=== PATIENT | male | born 1975 | race Caucasian/White ===

== ENCOUNTER 2022-08-07 20:00 | Emergency (ER) | payer OTHER, SELFPAY ==
--- NOTE | ~2022-08-07 | XR_ITS ---
EXAMINATION: XR chest 2V DATE: 08/07/2022 20:35 INDICATION: Chest pain. TECHNIQUE: Frontal and lateral views of the chest were obtained. COMPARISON: None. FINDINGS: There is no pneumonia, pleural effusion, or pneumothorax. The heart size is normal. IMPRESSION: 1. No acute cardiopulmonary disease. Reviewed, dictated and finalized at location E.
--- NOTE | 2022-08-07 20:02 | ECG_ITS ---
Measurements Intervals [place] Rate: 101 P: 61 [place]: 171 QRS: 21 QRSD: 108 T: 46 QT: 346 QTc: 450 Interpretive Statements SINUS TACHYCARDIA BASELINE ARTIFACT- I, II, III, AVR, AVL, AVF, V1 BORDERLINE ECG NO PREVIOUS ECG AVAILABLE FOR COMPARISON Electronically Signed On 08-07-2022 20:20:08 CDT by Daryl Stewart D.O.
[2022-08-07] MEDS: ASPIRIN 81 MG CHEWABLE TABLET 324 MG PO (20:05)
[2022-08-07 20:07] VITALS: BP 184/96; PULSE 102; RESP 22; TEMP 37.1; O2SAT 99
[2022-08-07 20:13] LABS: Basophils Absolute Auto 0.1 K/mm3 (0.0-0.1); Basophils Percent Auto 0.8 % (0.2-1.2); Eosinophils Absolute Auto 0.3 K/mm3 (0-0.3); Eosinophils Percent Auto 2.1 % (0-4.4); Hematocrit 41.4 % (42.0-52.0); Hemoglobin 14.7 g/dL (14.0-18.0); Immature Granulocyte Absolute 0.06 K/mm3 (0.00-0.031); Immature Granulocyte Percent A 0.4 % (0-0.5); Lymphocytes Absolute Auto 2.95 K/mm3 (0.9-3.2); Mean Corpuscular HGB Conc 35.5 g/dl (32-36); Mean Corpuscular Hemoglobin 35.3 pg (26-34); Mean Corpuscular Volume 99.5 fl (80-100); Mean Platelet Volume 8.8 fl (7.4-10.4); Monocytes Absolute Auto 1.9 K/mm3 (0.1-0.6); Monocytes Percent Auto 12.1 % (2.6-8.5); Neutrophils Absolute Auto 10.2 K/mm3 (1.3-6.7); Neutrophils Percent Auto 65.6 % (45.5-73.1); Platelet Count Result 292 k/mm3 (150-375); Red Blood Count 4.16 M/mm3 (4.6-6.20); Red Cell Distribution Width 12.8 % (11.5-14.5); White Blood Count 15.5 K/mm3 (4.5-10.0)
[2022-08-07 20:23] LABS: Alanine Aminotransferase 80 U/L (6-50); Albumin Level 5.2 g/dL (3.5-5.1); Alkaline Phosphatase 244 U/L (38-126); Anion Gap 18 mmol/L (8-16); Aspartate Amino Transferase 153 U/L (17-59); Bilirubin,Total 1.2 mg/dL (0.2-1.3); Blood Urea Nitrogen 7 mg/dL (9-20); Calcium 9.1 mg/dL (8.4-10.2); Carbon Dioxide 19 mmol/L (22-30); Chloride 90 mmol/L (98-107); Estimated CRCL calculation 199 ml/min; Estimated Glomerular Filt Rate > 60; Glucose 136 mg/dL (65-110); Lipase 120 U/L (23-300); Potassium 3.6 mmol/L (3.4-5.0); Sodium 127 mmol/L (137-145)
[2022-08-07 20:25] LABS: INR 1.2
[2022-08-07 20:26] LABS: Partial Thromboplastin Time 43.4 SECONDS (22.3-36.8)
[2022-08-07 20:34] LABS: Troponin I < 0.012 ng/mL (0.000-0.034)
[2022-08-07] MEDS: LORazepam INJ (*CRX) 2 MG/ML VIAL 1 MG IV PUSH (21:10)
[2022-08-07 21:11] VITALS: BP 175/91; PULSE 102; RESP 20; O2SAT 95
[2022-08-07 21:31] VITALS: BP 164/93; PULSE 92; RESP 20; O2SAT 96
[2022-08-07 21:37] LABS: D Dimer 0.34 ug/mL (<0.48)
[2022-08-07] MEDS: SODIUM CHLORIDE 0.9% IV 3,000 ML 999 ML IV CONT (21:40)
[2022-08-07 21:42] LABS: NT Pro B Type Natriuretic Pept 27 pg/mL (19.9-100)
[2022-08-07 22:01] VITALS: BP 161/84; PULSE 88; RESP 20; O2SAT 97
--- NOTE | 2022-08-07 22:10 | ED.GENADULT ---
HPI - General Adult General Chief complaint: Chest Pain Stated complaint: chest pain Time Seen by Provider: 08/07/22 21:01 History of Present Illness HPI narrative: This is a 46-year-old male with history of alcohol use disorder anxiety presenting ED with chest pain. Patient said that starting at 7:00 p.m. while he was watching TV started have a tightness over the left side of his chest. It is nonradiating, 10 out 10 intensity and is getting worse. Is associated with feelings of impending doom. He also had nausea, diaphoresis and feels this is associated with exertion. No vomiting fever chills or cough. Patient's last drink was earlier today and he had a six-pack of beer per Related Data Allergies Allergy/AdvReac Type Severity Reaction Status Date / Time lisinopril Allergy Unknown Hives Verified 04/16/22 16:01 Penicillins Allergy Unknown Pt does Verified 04/16/22 16:01 not remember reaction PMFSH Past Medical History Medical History Body mass index [BMI] 36.0-36.9, adult (09/13/17) Cellulitis of right lower extremity Encounter for immunization (12/08/18) Tachycardia Family History Family History Other Hypertension Social History Social History (Updated 04/16/22 @ 16:03 by Mallory Magallanes [facility]) Smoking status: Former smoker Smoking end date: 03/29/13 Lack of Transportation: No Lack of Food: Never True Current Housing: I Have Housing Concerned About Future Housing: No Difficulty Paying Gas/Electric Bills: No Difficulty Paying for Meds: No Currently Unemployed: No Education: Trade/Vocational Certificate Difficulty w/ Childcare or Family Care: No Exam Narrative: APPEARANCE: patient appears anxious Head: atraumatic. EYES: EOMI, NOSE: Atraumatic NECK: Trachea midline RESPIRATORY: No increased rate of breathing clear to auscultation CARDIOVASCULAR: RRR, no peripheral edema ABDOMINAL: Non-distended, obese nontender no guarding rebound MUSCULOSKELETAl: No obvious deformities NEURO: Alert. Moving 4/4 extremities SKIN:: Warm, dry. Normal color PSYCHIATRIC: anxious Course Vital Signs Vital signs: Vital Signs Temperature 98.7 F 08/07/22 20:07 Pulse Rate 102 H 08/07/22 20:07 Respiratory Rate 22 H 08/07/22 20:07 Blood Pressure 184/96 H 08/07/22 20:07 Pulse Oximetry 99 08/07/22 20:07 Oxygen Delivery Room Air 08/07/22 20:07 Temperature 98.7 F 08/07/22 20:07 Pulse Rate 91 08/07/22 23:55 Respiratory Rate 18 08/07/22 23:55 Blood Pressure 161/84 H 08/07/22 22:01 Pulse Oximetry 97 08/07/22 23:55 Oxygen Delivery Room Air 08/07/22 20:07 Medical Decision Making MDM Narrative Medical decision making narrative: -Presentation: 46-year-old male presenting with chest pain. 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 Metabolic panel was significant for hyponatremia and hypochloremia with a metabolic anion gap acidosis. This is likely due to dehydration. patient will be given 3 L of fluid. patient also has elevations in his liver enzymes and alcohol use pattern. Troponins were negative x2. BNP was 27. D-dimer was 0.34. Independent EKG interpretation: Rhythm [sinus], Rate [101], Michie -[normal], NC -[normal], QRS [narrow], QTC [normal], T waves -[negative for concerning inversions], ST Segments - [Negative f
--- NOTE | 2022-08-07 23:15 | PC.NURSE ---
Assumed care of pt at this time
[2022-08-07 23:23] LABS: Troponin I < 0.012 ng/mL (0.000-0.034)
[2022-08-07 23:55] VITALS: PULSE 91; RESP 18; O2SAT 97
--- NOTE | 2022-08-08 00:02 | PC.NURSE ---
Pt denies any chest pain or SOB. Skin warm and dry. Lungs clear bilaterally.
[2022-08-08 00:44] VITALS: BP 164/87; PULSE 77; RESP 18; O2SAT 100
== END 2022-08-08 00:45 | disposition home or self-care (01) ==
PROVIDERS: Emergency Medicine; Emergency Provider Emergency Medicine; PCP Family Medicine
DX: R07.89 Other chest pain (principal); F41.9 Anxiety disorder, unspecified; E86.0 Dehydration; Z87.891 Personal history of nicotine dependence; R00.0 Tachycardia, unspecified
CPT/HCPCS: 36415; 71046; 80053; 83690; 83880; 84484; 85025; 85380; 85610; 85730; 93005; 96361; 96374; 99284; A9270; J2060; J7030

== ENCOUNTER 2022-09-07 20:58 | Observation (INO) | payer OTHER, SELFPAY ==
[2022-09-07] VITALS (7 sets, daily range): BP systolic 165–183; BP diastolic 75–88; PULSE 84–91; RESP 10–19; TEMP 36.3; O2SAT 96–99
--- NOTE | ~2022-09-07 | US_ITS ---
EXAMINATION: US abdomen limited DATE: 09/08/2022 07:59 INDICATION: Abdominal pain. TECHNIQUE: Multiple grayscale and Doppler ultrasound images of the abdomen were obtained. COMPARISON: CT abdomen and pelvis 09/07/2022 FINDINGS: The visualized portions of the head of the pancreas are normal. The liver demonstrates coar sened echotexture and surface nodularity, consistent with cirrhosis. The gallbladder is distended and contains sludge. Gallbladder wall thickening is noted. There is no sonographic Ahumada sign. The comm on duct is normal and measures 6 mm. IMPRESSION: 1. Cirrhosis of the liver. 2. Distended gallbladder with sludge and gallbladder wall thickening, but no sonographic Ahumada sign or visible gallstones. These findings are indeterminate for acute cholecystitis. Consider hepatobilia ry scintigraphy. Reviewed, dictated and finalized at location A. IMPRESSION: 1. Cirrhosis of the liver. 2. Distended gallbladder with sludge and gallbladder wall thickening, but no so nographic Ahumada sign or visible gallstones. These findings are indeterminate f or acute cholecystitis. Consider hepatobiliary scintigraphy.
--- NOTE | ~2022-09-07 | CT_ITS ---
EXAMINATION: CT abdomen pelvis w con DATE: 09/07/2022 22:12 INDICATION: abdominal pain, vomiting TECHNIQUE: Computed tomography (CT) of the abdomen and pelvis was performed with 100 mL Omnipaque-350 intravenous contrast. Automated exposure control and iterative reconstruction technique were employe d. The dose-length product was 1602.61 mGy-cm. COMPARISON: None. FINDINGS: Lower thorax: Unremarkable Liver: Hepatomegaly. Nodular appearing liver border. Biliary/Gallbladder: Gallbladder is distended to 5 cm, with wall hyperemia and mild surrounding infla mmatory change. No gallstones detected. No bile duct dilation. Pancreas: No mass or duct dilation. Spleen: Normal. Adrenals:No mass. Kidneys: Punctate left midpole calcification. No suspicious mass, obstructing stone, or hydronephrosi s. GI tract: No small or large bowel dilation. 13 x 20 mm fat density ovoid mass in the proximal sigmoid colon, likely lipoma. Normal appendix. Mesentery/Peritoneum: No ascites, mass, or free air. Retroperitoneum: No mass. Pelvis: Bladder wall thickening in the fully distended urinary bladder. No significant prostatomegaly . Prominent seminal vesicles. Soft Tissues: Uncomplicated fat-containing periumbilical and bilateral inguinal hernias. Bones: No acute osseous finding. IMPRESSION: 1. Hepatomegaly, with nodularity of the liver border as can be seen with cirrhosis. 2. Gallbladder hydrops with mild inflammatory change as can be seen with cholecystitis. 3. Urinary bladder wall thickening, may represent cystitis or outlet obstruction, correlate with urin alysis. 4. 20 mm fat density intraluminal mass in the proximal sigmoid colon, likely representing a lipoma an d requiring no additional workup, unless symptomatic, in which case consider GI referral for possible endoscopic excision. Reviewed, dictated and finalized at location K. IMPRESSION: 1. Hepatomegaly, with nodularity of the liver border as can be seen with cirrho sis. 2. Gallbladder hydrops with mild inflammatory change as can be seen with cholec ystitis. 3. Urinary bladder wall thickening, may represent cystitis or outlet obstructio n, correlate with urinalysis. 4. 20 mm fat density intraluminal mass in the proximal sigmoid colon, likely re presenting a lipoma and requiring no additional workup, unless symptomatic, in which case consider GI referral for possible endoscopic excision.
[2022-09-07 21:15] LABS: Basophils Absolute Auto 0.1 K/mm3 (0.0-0.1); Basophils Percent Auto 0.5 % (0.2-1.2); Eosinophils Percent Auto 0.2 % (0-4.4); Hematocrit 38.3 % (42.0-52.0); Hemoglobin 14.4 g/dL (14.0-18.0); Immature Granulocyte Absolute 0.08 K/mm3 (0.00-0.031); Immature Granulocyte Percent A 0.5 % (0-0.5); Lymphocytes Absolute Auto 0.95 K/mm3 (0.9-3.2); Lymphocytes Percent Auto 6.2 % (18.3-44.2); Mean Corpuscular HGB Conc 37.6 g/dl (32-36); Mean Corpuscular Hemoglobin 35.2 pg (26-34); Mean Corpuscular Volume 93.6 fl (80-100); Mean Platelet Volume 8.7 fl (7.4-10.4); Monocytes Absolute Auto 1.2 K/mm3 (0.1-0.6); Monocytes Percent Auto 7.8 % (2.6-8.5); Neutrophils Percent Auto 84.8 % (45.5-73.1); Platelet Count Result 277 k/mm3 (150-375); Red Blood Count 4.09 M/mm3 (4.6-6.20); Red Cell Distribution Width 11.8 % (11.5-14.5); White Blood Count 15.3 K/mm3 (4.5-10.0)
[2022-09-07 21:27] LABS: Alanine Aminotransferase 68 U/L (6-50); Albumin Level 5.3 g/dL (3.5-5.1); Alkaline Phosphatase 148 U/L (38-126); Anion Gap 18 mmol/L (8-16); Aspartate Amino Transferase 134 U/L (17-59); Bilirubin,Total 1.9 mg/dL (0.2-1.3); Blood Urea Nitrogen 11 mg/dL (9-20); Carbon Dioxide 24 mmol/L (22-30); Chloride 72 mmol/L (98-107); Estimated CRCL calculation 170 ml/min; Estimated Glomerular Filt Rate > 60; Glucose 165 mg/dL (65-110); Lipase 106 U/L (23-300); Potassium 3.9 mmol/L (3.4-5.0); Sodium 114 mmol/L (137-145)
--- NOTE | 2022-09-07 22:02 | PC.NURSE ---
Pt states he is unable to void at this time
[2022-09-07 22:10] LABS: Magnesium 1.1 mg/dL (1.6-2.3)
[2022-09-07 22:12] LABS: Ethanol < 10 mg/dL (<10); Lactic Acid Reflex 3.1 mmol/L (0.7-2.0)
[2022-09-07] MEDS: MAGNESIUM SULF 2 GM/WATER 50ML 2 GM/50 ML BAG IVPB (22:21)
[2022-09-07] MEDS: THIAMINE 500 MG/NS 100 ML 500 MG/100 ML BAG 200 MG IVPB (22:22)
[2022-09-07] MEDS: SODIUM CHLORIDE 0.9% IV 1,000 ML 999 ML IV CONT ×3 (22:25→23:03)
[2022-09-07] MEDS: ONDANSETRON INJ 4 MG/2 ML VIAL IV PUSH (22:25)
[2022-09-07 22:36] LABS: Beta-Hydroxybutyrate/Acetoacetate 0.58 mmol/L (0.02-0.27)
[2022-09-07 23:21] LABS: Appearance Urine Clear (Clear); Bacteria Urine None Seen /hpf; Bilirubin Urine Negative (Negative); Blood Urine Negative (Negative); Color Urine Yellow (Yellow); Glucose Urine UA 2+ mg/dL (Negative); Ketones Urine 1+ mg/dL (Negative); Leukocyte Esterase Ur Negative LEU/UL (Negative); Nitrate Urine Negative (Negative); Non Pathogenic Casts 0-2; Protein Urine 1+ mg/dL (Negative); RBC Urine 0-2 /hpf (0-2); Squamous Epithelial Cell Urine None seen /hpf (Few); WBC Urine 0-5 /hpf; pH Urine 5.5 (5.0-9.0)
[2022-09-07 23:27] LABS: Add Urine Microscopic? YES; Specific Grav Ur 1.045 (1.001-1.035)
[2022-09-08] VITALS (14 sets, daily range): BP systolic 132–178; BP diastolic 74–105; PULSE 69–93; RESP 12–20; TEMP 36–36.6; O2SAT 95–100; BMI 36.2
--- NOTE | 2022-09-08 00:04 | ED.GENADULT ---
HPI - General Adult General Chief complaint: Nausea/Vomiting/Diarrhea Stated complaint: abd pain Time Seen by Provider: 09/07/22 21:36 History of Present Illness HPI narrative: Patient is a 46-year-old gentleman who presents the emergency department with chief complaint of abdominal pain nausea and vomiting. Patient reports he has history of alcohol abuse and this afternoon around noon started having multiple bouts of nausea and vomiting reports he was not able to drink his normal amount of alcohol and reports he was unable to keep his medications down. The patient denies fever reports that he is getting shaky and does not feel well. Patient reports no fever reports that his abdomen hurts all over. Related Data Allergies Allergy/AdvReac Type Severity Reaction Status Date / Time lisinopril Allergy Unknown Hives Verified 09/07/22 22:02 Penicillins Allergy Unknown Pt does Verified 09/07/22 22:02 not remember reaction Review of Systems Review of Systems: A 10 system review of systems was completed on the patient and is negative except for what is stated in the HPI. Nursing and ancillary documentation was reviewed. [facility] Past Medical History Medical History Body mass index [BMI] 36.0-36.9, adult (09/13/17) Cellulitis of right lower extremity Encounter for immunization (12/08/18) Tachycardia Family History Family History Other Hypertension Social History Social History Smoking status: Former smoker Smoking end date: 03/29/13 Lack of Transportation: No Lack of Food: Never True Current Housing: I Have Housing Concerned About Future Housing: No Difficulty Paying Gas/Electric Bills: No Difficulty Paying for Meds: No Currently Unemployed: No Education: Trade/Vocational Certificate Difficulty w/ Childcare or Family Care: No Exam Narrative: GENERAL: Well-appearing, well-nourished, and in no acute distress. HEAD: Normocephalic, atraumatic. EYES: PERRLA and EOMI. ENT: Nares clear, no rhinorrhea or epistaxis. Mucous membranes moist. NECK: Supple. CHEST: Clear to auscultation. No respiratory distress. HEART: Regular rate and rhythm. No murmur heard. Normal peripheral pulses. ABDOMEN: Soft, nontender, nondistended, normal active bowel sounds. EXTREMITIES: Normal range of motion. No edema. SKIN: Warm, dry, no rash. NEURO: No focal deficits. Alert and oriented x3. PSYCH: Normal mood and affect. Course Vital Signs Vital signs: Vital Signs Temperature 36.3 C L 09/07/22 21:00 Pulse Rate 86 09/07/22 21:00 Respiratory Rate 17 09/07/22 21:00 Blood Pressure 183/85 H 09/07/22 21:00 Pulse Oximetry 99 09/07/22 21:00 Oxygen Delivery Room Air 09/07/22 21:00 Temperature 36.3 C L 09/07/22 21:00 Pulse Rate 87 09/07/22 22:46 Respiratory Rate 10 L 09/07/22 22:46 Blood Pressure 168/75 H 09/07/22 22:46 Pulse Oximetry 98 09/07/22 22:46 Oxygen Delivery Room Air 09/07/22 21:00 Medical Decision Making Vital Signs Vital Signs: Vital Signs Temperature 36.3 C L 09/07/22 21:00 Pulse Rate 86 09/07/22 21:00 Respiratory Rate 17 09/07/22 21:00 Blood Pressure 183/85 H 09/07/22 21:00 Pulse Oximetry 99 09/07/22 21:00 Oxygen Delivery Room Air 09/07/22 21:00 Temperature 36.3 C L 09/07/22 21:00 Pulse Rate 87 09/07/22 22:46 Respiratory Rate 10 L 09/07/22 22:46 Blood Pressure 168/75 H 09/07/22 22:46 Pulse Oximetry 98 09/07/22 22:46 Oxygen Delivery Room Air 09/07/22 21:00 Lab Data 09/07/22 21:08 09/07/22 21:08 Labs: Lab Results 09/07/22 09/07/22 09/07/22 Range/Units 21:05 21:08 21:56 WBC 15.3 H (4.5-10.0) K/mm3 RBC 4.09 L (4.6-6.20) M/mm3 Hgb 14.4 (14.0-18.0) g/dL Hct
--- NOTE | 2022-09-08 00:15 | ECG_ITS ---
Measurements Intervals [place] Rate: 83 P: 42 [place]: 192 QRS: 23 QRSD: 113 T: 29 QT: 393 QTc: 463 Interpretive Statements SINUS RHYTHM MODERATE INTRAVENTRICULAR CONDUCTION DELAY [110+ ms QRS DURATION] COMPARED TO ECG 08/07/2022 20:05:57 SINUS RHYTHM NOW PRESENT Electronically Signed On 09-08-2022 14:51:17 CDT by Eligio Woodall M.D.
[2022-09-08 00:51] LABS: Lactic Acid Reflex 1.2 mmol/L (0.7-2.0)
[2022-09-08] MEDS: POTASSIUM CHLORIDE 20 MEQ PACKET (FOR LIQUID) 40 MEQ PO (00:51)
[2022-09-08] MEDS: MAGNESIUM SULF 2 GM/WATER 50ML 2 GM/50 ML BAG IVPB (00:51)
[2022-09-08] MEDS: LORazepam INJ (*CRX) 2 MG/ML VIAL 1 MG IV PUSH (00:52)
[2022-09-08 00:53] LABS: Anion Gap 11 mmol/L (8-16); Blood Urea Nitrogen 10 mg/dL (9-20); Calcium 7.7 mg/dL (8.4-10.2); Carbon Dioxide 26 mmol/L (22-30); Chloride 78 mmol/L (98-107); Estimated CRCL calculation 195 ml/min; Estimated Glomerular Filt Rate > 60; Glucose 146 mg/dL (65-110); Potassium 4.1 mmol/L (3.4-5.0); Sodium 115 mmol/L (137-145)
[2022-09-08 01:01] LABS: Reflex Lactic Acid Yes or No Add Lactic
--- NOTE | 2022-09-08 01:24 | ADMGEN ---
This patient, Prudencio Siddiqui, was admitted to [facility] Surg Room 320-01. Patient/family oriented to hospital policies and general routines including ID bracelet, bed and alarms, visiting hours, pain management, procedures, bathroom and other care routines, personal items, smoking policy, room service/diet, and visiting hours. Information on how to activate the Rapid Response Team has been discussed. Patient/Family are encouraged to report perceived risks to care and to ask questions if they do not understand what they are told or what they should do.
[2022-09-08] MEDS: SODIUM CHLORIDE 0.9% IV 1,000 ML 100 ML IV CONT (02:46)
--- NOTE | 2022-09-08 04:35 | PM.IMHP ---
H&P: HPI History of Present Illness Date/Time: 09/08/22 04:35 Chief Complaint: Vomiting since lunchtime Narrative: 46-year-old male with a past medical history of chronic alcohol abuse, central hypertension, obesity anxiety and alcohol abuse who presented to the ER via private vehicle due to vomiting. The patient relates that he thinks his vomiting is doing moved to being extremely anxious. He reports that he ate a biscuit sandwich for breakfast and felt well. 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 He reported that he vomited several times. He thought that his vomiting was due to not taking his Xanax. He reports that he has been more anxious because he has been weaning off of alcohol. He reports he was evaluated in the ER last month and he was diagnosed with panic attacks and dehydration. He was encouraged quit drinking alcohol. He he states he has been drinking alcohol to help self medicate his anxiety. He has been drinking daily for many years but increased his alcohol consumption at the start of . He reports that his average alcohol use was 18 beers a day but has been slowly cutting down to 13-15 beers a day currently. 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 He denies having any abdominal pain until after he had been vomiting for quite some time. He has no discomfort on palpation of his abdomen. He denies any hematemesis or coffee-ground emesis. He has been having normally formed bowel movements. His last bowel movement was yesterday. He has not had any further vomiting since the ER. He received 3 L of isotonic fluids in the ER. However sodium in the ER was markedly low at 111. He had had prior history of hyponatremia when he came to the ER last month. The patient was noted to have a slight tremor on exam. He reports that he shakes until a takes his lorazepam but the patient was only started on lorazepam on the of last month. So I suspect is shaking and more due to alcohol withdrawal. The patient does report that he snores. His is never mention to him whether not he has apneic spells. He does have some daytime fatigue. Review of Systems Review of Systems: 12 systems were reviewed with pertinent positives and negatives per HPI. Except as documented in the HPI, all other systems were reviewed and are negative. PMFSH Past Medical History Medical History (Updated 09/08/22 @ 07:09 by January Bran DO) Alcohol abuse Alcoholic cirrhosis Anxiety Body mass index [BMI] 36.0-36.9, adult (09/13/17) Eczema Essential hypertension Nicotine dependence, other tobacco product, uncomplicated Surgical History Surgical History (Updated 09/08/22 @ 06:42 by January Bran DO) No history of previous surgery Family History Family History Father Gluten intolerance Hypertension Mother Hypertension Breast cancer Sibling Hypertension Social History Social History (Updated 09/08/22 @ 06:44 by January Bran DO) Social History: Patient lives with his of approximately 7 years. They do not have any children. 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 He used to smoke 1.5 packs of cigarettes per day but quit in his late 20s. He denies any illicit substance use. He has history of heavy alcohol use with up to 18 beers a day. Code status: Full code Surrogate decision maker: Francisco (spouse) Smoking packs per day: 1.5 Smoking cigarettes per day: 30.0 Years smoked: 12 Smoking pack-years: 18.00 Smoking status: Former smoker Tobacco type: cigarettes Smoking end date: 03/29/13 Alcohol intake: current Drinks per week: 126 Alcohol use details: He drinks 18 beers a day. Substance use: never Substance use type: does not use Lack of Transportation: No Lack of Food: Never True Current Housing: [facility]
[2022-09-08 05:11] LABS: Hematocrit 35.2 % (42.0-52.0); Hemoglobin 13.1 g/dL (14.0-18.0); Mean Corpuscular HGB Conc 37.2 g/dl (32-36); Mean Corpuscular Hemoglobin 35.2 pg (26-34); Mean Corpuscular Volume 94.6 fl (80-100); Mean Platelet Volume 8.9 fl (7.4-10.4); Platelet Count Result 246 k/mm3 (150-375); Red Blood Count 3.72 M/mm3 (4.6-6.20); Red Cell Distribution Width 11.9 % (11.5-14.5)
[2022-09-08 05:24] LABS: Phosphorus 3.2 mg/dL (2.5-4.5)
[2022-09-08 05:51] LABS: Alanine Aminotransferase 60 U/L (6-50); Albumin Level 4.4 g/dL (3.5-5.1); Alkaline Phosphatase 105 U/L (38-126); Anion Gap 8 mmol/L (8-16); Aspartate Amino Transferase 112 U/L (17-59); Bilirubin,Total 1.9 mg/dL (0.2-1.3); Blood Urea Nitrogen 10 mg/dL (9-20); Calcium 8.4 mg/dL (8.4-10.2); Carbon Dioxide 29 mmol/L (22-30); Chloride 82 mmol/L (98-107); Estimated CRCL calculation 199 ml/min; Estimated Glomerular Filt Rate > 60; Glucose 134 mg/dL (65-110); Potassium 4.4 mmol/L (3.4-5.0); Sodium 119 mmol/L (137-145)
[2022-09-08 06:12] LABS: Thyroid Stimulating Hormone Reflex 0.539 uIU/mL (0.465-4.68)
[2022-09-08] MEDS: DEXTROSE 5%/0.45% SOD CHL 1,000 ML 100 ML IV CONT (06:52)
[2022-09-08] MEDS: chlordiazePOXIDE (*CRX) 10 MG CAPSULE PO ×3 (08:41→21:50)
[2022-09-08] MEDS: DEXTROSE 5%/0.9% SOD CHL 1,000 ML 100 ML IV CONT ×2 (08:41→19:02)
[2022-09-08] MEDS: ENOXAPARIN 40 MG/0.4 ML SYRINGE SUB-Q (08:42)
[2022-09-08] MEDS: MULTIVITAMINS THERAPEUTIC TAB (*BKC) 1 TABLET PO (08:42)
[2022-09-08] MEDS: FOLIC ACID 1 MG TABLET PO (08:42)
[2022-09-08] MEDS: THIAMINE HCL 100 MG TABLET PO (08:42)
[2022-09-08] MEDS: atenoloL 50 MG TABLET PO (08:43)
[2022-09-08] MEDS: amLODIPine BESYLATE 5 MG TABLET PO (08:43)
[2022-09-08] MEDS: SERTRALINE HCL 50 MG TABLET PO (08:43)
[2022-09-08] MEDS: IRBESARTAN 150 MG TABLET 300 MG PO (08:43)
--- NOTE | 2022-09-08 10:25 | PM.IMPN ---
Progress Note: A&P Assessment and Plan (1) Alcohol abuse: Code(s): F10.10 - Alcohol abuse, uncomplicated Status: Acute Assessment and Plan: Continue CIWA protocol. Continue Librium. Patient asymptomatic (2) Acute hyponatremia: Code(s): E87.1 - Hypo-osmolality and hyponatremia Status: Acute Assessment and Plan: Sodium improving. Continue D5 NS. Monitor serum sodium q.4 hours (3) Hypomagnesemia: Code(s): E83.42 - Hypomagnesemia Status: Acute Assessment and Plan: Replaced Subjective Date/time seen: 09/08/22 10:25 Interval history: Patient asymptomatic Review of Systems Review of Systems: 12 systems were reviewed with pertinent positives and negatives per HPI. Except as documented in the HPI, all other systems were reviewed and are negative. Exam Narrative: Weight 136 kg BMI 37.6 Const: Other: Lying in bed had at 20?, appears stated age, morbidly obese HENMT: Other: Mucous membranes are tacky, no oral pharyngeal erythema, markedly crowded posterior oropharynx, no scleral icterus, no conjunctival pallor, head is normocephalic atraumatic Eyes: Other: Pupils are equal and reactive, no scleral icterus, no conjunctival pallor Neck: Other: Large neck circumference, no JVD, trachea midline Resp: Other: Clear to auscultation bilaterally, no increased work of breathing Cardio: Other: Regular rate, regular rhythm, 2+ bilateral radial pedal pulses GI: Other: Palpable liver, distended abdomen, soft, nontender Skin: Other: selena complexion, slightly diaphoretic, no petechiae, no bruising Neuro: Other: Alert oriented, speech is clear, no facial asymmetry, no localizing neurologic deficits noted during the course of conversation, fine tremor to touch in fingertips and hands Extrem: Other: No clubbing, cyanosis or edema Psych: Other: Anxious, pleasant, cooperative, judgment and insight intact Objective Data Vital Signs Vital Signs: Vital Signs - 24 hr 09/07/22 21:00 09/07/22 22:31 09/07/22 22:46 Temperature 97.4 F L Pulse Rate 86 84 87 Respiratory Rate 17 10 L 10 L Blood Pressure 183/85 H 175/76 H 168/75 H Pulse Oximetry 99 97 98 Oxygen Delivery Room Air 09/07/22 23:18 09/07/22 23:31 09/07/22 23:32 Temperature Pulse Rate 86 88 91 Respiratory Rate 15 19 14 Blood Pressure 165/88 H Pulse Oximetry 96 98 97 Oxygen Delivery 09/07/22 23:46 09/08/22 00:01 09/08/22 00:15 Temperature Pulse Rate 88 88 84 Respiratory Rate 14 16 18 Blood Pressure Pulse Oximetry 97 97 97 Oxygen Delivery 09/08/22 00:16 09/08/22 00:30 09/08/22 01:24 Temperature 96.8 F L Pulse Rate 85 84 93 Respiratory Rate 19 17 18 Blood Pressure 170/90 H 151/105 H Pulse Oximetry 100 98 98 Oxygen Delivery 09/08/22 01:25 09/08/22 04:00 09/08/22 05:56 Temperature 97.1 F L Pulse Rate 86 80 Respiratory Rate 18 Blood Pressure 178/90 H 140/77 Pulse Oximetry 98 Oxygen Delivery 09/08/22 09:29 09/08/22 08:00 09/08/22 08:00 Temperature 97.0 F L Pulse Rate 79 80 Respiratory Rate 12 Blood Pressure 141/79 H 141/79 H Pulse Oximetry 98 Oxygen Delivery 09/08/22 08:00 Temperature Pulse Rate Respiratory Rate Blood Pressure Pulse Oximetry Oxygen Delivery Room Air Intake/Output Intake/Output: Intake & Output 09/05/22 09/06/22 09/07/22 09/08/22 23:59 23:59 23:59 23:59 Intake Total 3150 / 3150 706 / 706 Output Total 4250 / 4250 Balance 3150 / 3150 -3544 / -3544 Meds/Results Medications: Active Medications Generic Name Dose Route Start Last Admin Trade Name Marisela PRN Reason Stop Dose Admin Amlodipine Besylate 5 mg 09/08/22 09:00 09/08/22 08:43 Amlodipine Besylate 5 Mg Tablet PO 5 mg DAILY KELLIE Administration Atenolol 50 mg 09/08/22 09:00 09/08/22 08:43 Atenolol 50 Mg Tablet PO 50 mg
[2022-09-08 11:08] LABS: Sodium 122 mmol/L (137-145)
[2022-09-08 11:26] LABS: Folic Acid 10.4 ng/mL (2.76->20)
[2022-09-08 15:29] LABS: Sodium 122 mmol/L (137-145)
[2022-09-08 18:40] LABS: Sodium 123 mmol/L (137-145)
[2022-09-09 00:24] LABS: Sodium 122 mmol/L (137-145)
--- NOTE | 2022-09-09 21:20 | PC.NURSE ---
Paper documentation exists on this patient due to Downstream System downtime on 09/09/22 from 0030 to 1930 .
--- NOTE | 2022-09-10 00:07 | PM.EVENT ---
Event Note Event Note Event Note: I received a call from the patient's nurse on 09/09/2022 at approximately 19:45. The patient does not wish to stay in the hospital any longer. Chart was briefly reviewed and he is not ready for discharge. His sodium levels have improved but are not back to baseline. He will be leaving hospital against medical advice despite recommendations. He understands that his sodium still needs to be corrected and he is at risk for deterioration in condition including seizure, coma, or even . He is alert and oriented x4 however and his is in the room with him and she will be taking him home. He was encouraged to return to resume treatment at any time and he needs follow-up with a doctor at the earliest possible interval. Again he is alert and oriented and I have not identified any limitations in his decision making abilities.
[2022-09-10 11:59] LABS: Anion Gap 8 mmol/L (8-16); Blood Urea Nitrogen 9 mg/dL (9-20); Carbon Dioxide 27 mmol/L (22-30); Chloride 91 mmol/L (98-107); Estimated CRCL calculation 173 ml/min; Estimated Glomerular Filt Rate > 60; Hematocrit 39.2 % (42.0-52.0); Hemoglobin 13.9 g/dL (14.0-18.0); Mean Corpuscular HGB Conc 35.5 g/dl (32-36); Mean Corpuscular Hemoglobin 35.2 pg (26-34); Mean Corpuscular Volume 99.2 fl (80-100); Mean Platelet Volume 8.9 fl (7.4-10.4); Platelet Count Result 242 k/mm3 (150-375); Potassium 4.6 mmol/L (3.4-5.0); Red Blood Count 3.95 M/mm3 (4.6-6.20); Red Cell Distribution Width 12.4 % (11.5-14.5); Sodium 126 mmol/L (137-145)
[2022-09-10 12:00] LABS: Calcium 8.8 mg/dL (8.4-10.2); Glucose 102 mg/dL (65-110)
== END 2022-09-09 21:21 | disposition left against medical advice (07) ==
LOC: ANHED 09-08 00:23 → ANH3MEDSUR 09-08 00:56
PROVIDERS: Family Medicine; Admitting Provider Internal Medicine; Emergency Provider Emergency Medicine; PCP Family Medicine; Visit Provider Internal Medicine
DX: F10.10 Alcohol abuse, uncomplicated (principal); Z53.29 Procedure and treatment not carried out because of patient's decision for other reasons; E87.1 Hypo-osmolality and hyponatremia; E83.42 Hypomagnesemia; R11.2 Nausea with vomiting, unspecified; E88.89 Other specified metabolic disorders; E86.0 Dehydration; R93.5 Abnormal findings on diagnostic imaging of other abdominal regions, including retroperitoneum; K70.30 Alcoholic cirrhosis of liver without ascites; R25.1 Tremor, unspecified; Y90.0 Blood alcohol level of less than 20 mg/100 ml; E87.6 Hypokalemia; F41.9 Anxiety disorder, unspecified; I10 Essential (primary) hypertension; R16.0 Hepatomegaly, not elsewhere classified; K82.1 Hydrops of gallbladder; K81.9 Cholecystitis, unspecified; K63.9 Disease of intestine, unspecified; I45.4 Nonspecific intraventricular block; Z87.891 Personal history of nicotine dependence; Z79.899 Other long term (current) drug therapy
CPT/HCPCS: 36415; 74177; 76705; 80048; 80053; 80307; 81001; 82010; 82607; 82746; 83605; 83690; 83735; 84100; 84295; 84443; 85025; 85027; 93005; 96361; 96365; 96367; 96372; 96374; 96375; 99285; A9270; G0378; J1650; J2060; J2405; J3411; J3475; J7030; J7042; Q9967

== ENCOUNTER 2022-09-23 16:15 | Outpatient (CLI) | payer OTHER, SELFPAY ==
[2022-09-23 18:31] LABS: Ammonia 22 umol/L (9-30)
[2022-09-23 18:37] LABS: Anion Gap 9 mmol/L (8-16); Blood Urea Nitrogen 9 mg/dL (9-20); Calcium 8.7 mg/dL (8.4-10.2); Carbon Dioxide 27 mmol/L (22-30); Chloride 95 mmol/L (98-107); Estimated Glomerular Filt Rate > 60; Glucose 91 mg/dL (65-110); Potassium 3.8 mmol/L (3.4-5.0); Sodium 131 mmol/L (137-145)
== END 2022-09-23 16:16 | disposition home or self-care (01) ==
LOC: ANHGOSHLAB 16:16
PROVIDERS: PCP Family Medicine; Visit Provider Family Medicine
DX: R93.5 Abnormal findings on diagnostic imaging of other abdominal regions, including retroperitoneum (principal); E87.1 Hypo-osmolality and hyponatremia; E87.6 Hypokalemia
CPT/HCPCS: 36415; 80048; 82140

== ENCOUNTER 2022-10-08 15:45 | Outpatient (CLI) | payer OTHER, SELFPAY ==
[2022-10-08 17:11] LABS: Kit Draw Collected
== END 2022-10-08 15:46 | disposition home or self-care (01) ==
LOC: ANHGOSHLAB 15:46
PROVIDERS: PCP Family Medicine; Visit Provider Family Medicine
DX: K70.30 Alcoholic cirrhosis of liver without ascites (principal); E78.5 Hyperlipidemia, unspecified; R74.01 Elevation of levels of liver transaminase levels
CPT/HCPCS: 36415